=== PATIENT | female | born 1970 | race Caucasian/White ===

== ENCOUNTER 2017-11-30 07:39 | Emergency (ER) | payer MEDICAID ==
[2017-11-30] MEDS: HYDROCODONE/APAP (5/325) TAB PO (08:17)
[2017-11-30 08:46] LABS: ADD MAN DIFF? NO
[2017-11-30 08:50] LABS: WHITE BLOOD COUNT 8.1 10^3/ul (4.8-10.8)
[2017-11-30 08:50] LABS: BASOPHILS % 0.5 % (0.0-2.0); EOSINOPHILS # 0.2 10^3/ul (0.0-0.5); EOSINOPHILS % 2.8 % (0.0-7.0); HEMATOCRIT 33.4 % (37.0-47.0); LYMPHOCYTES # 1.9 10^3/ul (0.8-2.9); LYMPHOCYTES % 23.9 % (15.0-51.0); MEAN CORPUSCULAR HEMOGLOBIN 23.1 pg (29.0-33.0); MEAN CORPUSCULAR HGB CONC 29.9 g/dl (32.0-37.0); MEAN CORPUSCULAR VOLUME 77.3 fl (82.0-101.0); MEAN PLATELET VOLUME 10.2 fl (7.4-10.4); MONOCYTE # 0.6 10^3/ul (0.3-0.9); MONOCYTES % 7.8 % (0.0-11.0); NEUTROPHIL # 5.2 10^3/ul (1.6-7.5); NEUTROPHILS % 64.3 % (39.0-77.0); PLATELET COUNT 335 10^3/UL (140-415); RED BLOOD COUNT 4.32 10^6/ul (4.20-5.40); RED CELL DISTRIBUTION WIDTH 18.3 % (11.5-14.5)
[2017-11-30 09:12] LABS: ANION GAP 15 (8-16); BLOOD UREA NITROGEN 10 mg/dl (7-20); CALCIUM 9.1 mg/dl (8.4-10.2); CARBON DIOXIDE 27 mmol/L (21-31); CHLORIDE 108 mmol/L (97-110); CREATININE 0.54 mg/dl (0.44-1.00); GLUCOSE 113 mg/dl (70-220); POTASSIUM 4.4 mmol/L (3.5-5.1); SODIUM 146 mmol/L (135-144)
[2017-11-30] MEDS: HYDROmorphONE 1 MG/ML SYG IV (09:18)
[2017-11-30] MEDS: ONDANSETRON 4 MG INJ IV (09:18)
[2017-11-30 09:22] LABS: TROPONIN-I 0.012 ng/ml (0.000-0.120)
[2017-11-30] MEDS: IOHEXOL 100 ML (10:14)
[2017-11-30] MEDS: SOD CHLORIDE 0.9% 100 ML (10:15)
[2017-11-30] MEDS: IOHEXOL 350MG/ML 50 ML BTL (10:15)
[2017-11-30 11:10] LABS: D-DIMER 644.79 ng/ml (<460)
== END 2017-11-30 18:33 | disposition home or self-care (01) ==
LOC: E/R 18:33 → FTE 07:39
DX: M54.6 Pain in thoracic spine (principal); R07.89 Other chest pain; R09.1 Pleurisy; I10 Essential (primary) hypertension
CPT/HCPCS: 36415; 71275; 78582; 80048; 81025; 84484; 85025; 85378; 96374; 96375; 99285-25